=== PATIENT | male | born 1960 ===

== ENCOUNTER → 2017-09-08 | Outpatient (CLI) | payer OTHER | END | disposition home or self-care (01) | LOC: PPH VACUNA 08:23 | DX: Z23 Encounter for immunization (principal) ==

== ENCOUNTER 2020-03-19 16:16 | Emergency (ER) | payer OTHER ==
[~2020-03-19] VITALS: Ht 177.8 cm; Wt 90.7 kg
[2020-03-19] MEDS ORDERED: LEVOXYL75 MCG (16:27)
[2020-03-19] MEDS ORDERED: COZAAR50 MG (16:27)
[2020-03-19] MEDS ORDERED: LIPITOR20 MG (16:27)
== END 2020-03-19 17:48 | disposition home or self-care (01) ==
LOC: ER 16:16
DX: S61.422A Laceration with foreign body of left hand, initial encounter (principal); W26.8XXA Contact with other sharp object(s), not elsewhere classified, initial encounter; Y93.89 Activity, other specified; Y92.018 Other place in single-family (private) house as the place of occurrence of the external cause; Y99.8 Other external cause status